=== PATIENT | male | born 1990 | race Caucasian/White ===

== ENCOUNTER 2020-04-14 12:28 | Emergency (ER) | payer OTHER ==
--- NOTE | 2020-04-14 12:45 | PDOC ---
Rapid Medical Evaluation Chief Complaint: Chest Pain Time Seen by Provider: 04/14/20 12:37 Medical Evaluation: 04/14/20 12:44 CC: chest pressure constant since last night, intermittent x 1 month, no other complaints Exam: no reproducible cp, vss Plan: labs, ekg, cxr Discharge Disposition - Diagnosis Chest pain - Referrals - Patient Instructions - Post Discharge Activity
[2020-04-14 12:46] VITALS: BP 119/71; PULSE 61; TEMP 97.8; BMI 31.8
--- OUTSIDE RECORDS SUMMARY | 2020-04-14 13:15 | XMS ---
:1990 Author Organization [facility] Support Name Relationship Address [place] [address] [address] [facility] [address] [place] [address] Re-disclosure Warning The records that you are about to access may contain information from federally- assisted alcohol or drug abuse programs. If such information is present, then the following federally mandated warning applies: This information has been disclosed to you from records protected by federal confidentiality rules (42 CFR part 2). The federal rules prohibit you from making any further disclosure of this information unless further disclosure is expressly permitted by the written consent of the person to whom it pertains or as otherwise permitted by 42 CFR part 2. A general authorization for the release of medical or other information is NOT sufficient for this purpose. The Federal rules restrict any use of the information to criminally investigate or prosecute any alcohol or drug abuse patient.The records that you are about to access may contain highly sensitive health information, the redisclosure of which is protected by Article 27-F of the [facility] Public Health law. If you continue you may haveaccess to information: Regarding HIV / AIDS; Provided by facilities licensed or operated by the [facility] Office of Mental Health; or Provided by the [facility] Office for People With Developmental Disabilities. If such information is present, then the following [facility] mandated warning applies: This information has been disclosed to you from confidential records which are protected by state law. State law prohibits you from making any further disclosure of this information without the specific written consent of the person to whom it pertains, or as otherwise permitted by law. Any unauthorized further disclosure in violation of state law may result in a fine or prison sentence or both. A general authorization for the release of medical or other information is NOT sufficient authorization for further disclosure. Insurance Providers Payer name Policy type Policy ID Covered Covered alliance party's Policy P marshall / Coverage alliance party ID relationship to [employer] ormation type mccord KEMAL [id number] [facility] NON CAP
[2020-04-14] MEDS ORDERED: ACETAMINOPHEN 500 MG TABLET (FP) PO ONE (13:50)
[2020-04-14 14:03] LABS: BASO % 0.3 % (0-2.0); EOS % 1.2 % (0-4.5); HEMATOCRIT 48.4 % (35.4-49); HEMOGLOBIN 16.2 GM/dL (11.7-16.9); LYMPH % 34.7 % (8-40); MCH 30.8 pg (25.7-33.7); MCHC 33.4 g/dl (32.0-35.9); MEAN PLT VOLUME 7.6 fl (7.5-11.1); MONO % 6.9 % (3.8-10.2); NEUT % 56.9 % (42.8-82.8); PLATELET COUNT 262 K/MM3 (134-434); RBC 5.26 M/mm3 (4.00-5.60); RDW 13.3 % (11.9-15.9); WHITE BLOOD COUNT 6.6 K/mm3 (4.0-10.0)
--- NOTE | 2020-04-14 14:09 | PDOC ---
*Physical Exam - Vital Signs Last Vital Signs Temp Pulse Resp BP Pulse Ox 97.8 F 61 17 119/71 100 04/14/20 12:44 04/14/20 12:44 04/14/20 12:44 04/14/20 12:44 04/14/20 12:44 - Physical Exam 04/14/20 14:09 The patient was examined by [SCOOBY Armendariz] under my direct supervision. I personally evaluated the patient. I concur with the above findings and the plan of care. ED Treatment Course - LABORATORY CBC & Chemistry Diagram: 04/14/20 13:00 04/14/20 13:00 Discharge - Discharge Information Problems reviewed: Yes Clinical Impression/Diagnosis: Chest pain Qualifiers: Chest pain type: unspecified Qualified Code(s): R07.9 - Chest pain, unspecified Condition: Stable Disposition: HOME - Follow up/Referral Referrals: Raymond Salgado MD [Staff Physician] - - Patient Discharge Instructions Patient Printed Discharge Instructions: DI for Atypical Chest Pain Additional Instructions: You were seen for your chest discomfort today. Your EKG, lab work and x-ray were normal. You may take Tylenol 650 mg every 6 hours as needed for pain. Please follow-up with cardiology as soon as possible. A referral has been given to you. Please follow-up with your primary care doctor tomorrow for further management of your symptoms. Return to the ER for persistent chest pain, shortness of breath, difficulty breathing or if you have any changes in your symptoms - Post Discharge Activity
[2020-04-14 14:20] LABS: CHLORIDE 105 mmol/L (98-107); POTASSIUM 3.9 mmol/L (3.5-5.1); SODIUM 138 mmol/L (136-145)
[2020-04-14 14:24] LABS: ANION GAP 5 MMOL/L (8-16); CALCIUM 9.7 mg/dL (8.5-10.1); CO2 28 mmol/L (21-32); GLUCOSE,RANDOM 90 mg/dL (74-106)
[2020-04-14 14:25] LABS: BLOOD UREA NITROGEN 11.9 mg/dL (7-18)
[2020-04-14 14:27] LABS: CREATININE 1.1 mg/dL (0.55-1.3)
[2020-04-14 14:28] LABS: SGOT/AST 16 U/L (15-37); SGPT/ALT 26 U/L (13-61)
[2020-04-14 14:29] LABS: BILIRUBIN,TOTAL 0.4 mg/dL (0.2-1); TOT PROT 7.5 g/dl (6.4-8.2)
[2020-04-14 14:30] LABS: ALK PHOS 58 U/L (45-117)
--- NOTE | 2020-04-14 15:12 | EKG ---
Test Reason : Blood Pressure : / mmHG Vent. Rate : 060 BPM Atrial Rate : 060 BPM P-R Int : 154 ms QRS Dur : 084 ms QT Int : 402 ms P-R-T Axes : 027 037 033 degrees QTc Int : 402 ms NORMAL SINUS RHYTHM NORMAL ECG NO PREVIOUS ECGS AVAILABLE Confirmed by MD JU, DAMON ([id number]) on 04/14/2020 3:12:26 PM Referred By: Confirmed By:DAMON DODD MD
--- NOTE | 2020-04-14 15:22 | PDOC ---
History of Present Illness - General Chief Complaint: Chest Pain Stated Complaint: CHEST PAIN Time Seen by Provider: 04/14/20 12:37 History Source: Patient Exam Limitations: No Limitations Past History - Travel History Traveled outside of the country in the last 30 days: No Close contact w/someone who was outside of country & ill: No - Medical History Allergies/Adverse Reactions: Allergies Allergy/AdvReac Type Severity Reaction Status Date / Time No Known Allergies Allergy Verified 04/14/20 14:15 Home Medications: Ambulatory Orders NK [No Known Home Medication] 04/14/20 COPD: No CHF: No DVT: No - Psycho-Social/Smoking History Smoking History: Never smoked Have you smoked in the past 12 months: No Information on smoking cessation initiated: No - Substance Abuse Hx (Audit-C & DAST Scrn) How often the patient has a drink containing alcohol: Never Score: In Men: 4 or > Positive; In Women: 3 or > Positive: 0 Screen Result (Pos requires Nsg. Audit-10AR): Negative In the last yr the pt used illegal drug/Rx for NonMed reason: No Score: Yes response is considered Positive: 0 Screen Result (Positive result requires Nsg. DAST-10): Negative Review of Systems - Review of Systems Able to Perform ROS?: Yes Comments:: 04/14/20 15:37 CONSTITUTIONAL: Absent: fever, chills, diaphoresis, generalized weakness, malaise, loss of appetite HEENT: Absent: rhinorrhea, nasal congestion, throat pain, throat swelling, difficulty swallowing, mouth swelling, ear pain, eye pain, visual Changes CARDIOVASCULAR: Present: Chest pain, pressure Absent: chest pain, loss of consciousness, palpitations, irregular heart rate, peripheral edema RESPIRATORY: Absent: cough, shortness of breath, dyspnea with exertion, orthopnea, wheezing, stridor, hemoptysis GASTROINTESTINAL: Absent: abdominal pain, abdominal distension, nausea, vomiting, diarrhea, constipation, melena, hematochezia GENITOURINARY: Absent: dysuria, frequency, urgency, hesitancy, hematuria, flank pain, genital pain MUSCULOSKELETAL: Absent: myalgia, arthralgia, joint swelling SKIN: Absent: rash, itching, pallor HEMATOLOGIC/IMMUNOLOGIC: Absent: easy bleeding, easy bruising, lymphadenopathy, frequent infections ENDOCRINE: Absent: unexplained weight gain, unexplained weight loss, heat intolerance, cold intolerance NEUROLOGIC: Absent: headache, focal weakness or paresthesias, dizziness, unsteady gait, seizure, mental status changes, bladder or bowel incontinence PSYCHIATRIC: Absent: anxiety, depression, suicidal or homicidal ideation, hallucinations. Is the patient limited [place] proficient: No *Physical Exam - Vital Signs Last Vital Signs Temp Pulse Resp BP Pulse Ox 97.8 F 61 17 119/71 100 04/14/20 12:44 04/14/20 12:44 04/14/20 12:44 04/14/20 12:44 04/14/20 12:44 - Physical Exam 04/14/20 15:38 GENERAL: Well developed, well nourished. Awake and alert. No acute distress. HEENT: Normocephalic, atraumatic. PERRLA, EOMI. No conjunctival pallor. Sclera are non- icteric. Moist mucous membranes. Oropharynx is clear. NECK: Supple. Full ROM. No lymphadenopathy. CARDIOVASCULAR: Regular rate and rhythm. No murmurs, rubs, or gallops. Distal pulses are 2+ and symmetric. PULMONARY: No evidence of respiratory distress. Lungs clear to auscultation bilaterally. No wheezing, rales or rhonchi. ABDOMINAL: Soft. Non-tender. Non-distended. No rebound or guarding. No organomegaly. Normoactive bowel sounds. MUSCULOSKELETAL Normal range of motion at all joints. No bony deformities or tenderness. No CVA tenderness. EXTREMITIES: No cyanosis. No clubbing. No edema. No calf tenderness. SKIN: Warm and dry. Normal capillary refill. No rashes. No jaundice. NEUROLOGICAL: Alert, awake, appropriate. Cranial nerves 2-12 intact. No deficits to light touch and temperature in face, upper extremities and lower extremities. No motor deficits in the in face, upper extremities and lower extremities. Normoreflexic in the upper and lower extremities. Normal speech. Toes are down-going bilateral ly. Gait is normal without ataxia. PSYCHIATRIC: Cooperative. Good eye contact. Appropriate mood and affect. ED Treatment Course - LABORATORY CBC & Chemistry Diagram: 04/14/20 13:00 04/14/20 13:00 - ADDITIONAL ORDERS Additional order review: Laboratory Results 04/14/20 13:00 Sodium 138 Potassium 3.9 Chloride 105 Carbon Dioxide 28 Anion Gap 5 L BUN 11.9 Creatinine 1.1 Est GFR (CKD-EPI)AfAm 103.13 Est GFR (CKD-EPI)NonAf 88.98 Random Glucose 90 Calcium 9.7 Total Bilirubin 0.4 AST 16 ALT 26 Alkaline Phosphatase 58 Creatine Kinase 251 Creatine Kinase Index No Result Required. CK-MB (CK-2) < 1.0 Troponin I < 0.02 Total Protein 7.5 Albumin 4.0 04/14/20 13:00 RBC 5.26 MCV 92.0 MCHC 33.4 RDW 13.3 MPV 7.6 Neutrophils % 56.9 Lymphocytes % 34.7 Monocytes % 6.9 Eosinophils % 1.2 Basophils % 0.3 - Medications Given in the ED: ED Medications Discontinued Medications Generic Name Dose Route Start Last Admin Trade Name Freq PRN Reason Stop Dose Admin Acetaminophen 1,000 mg 04/14/20 13:50 04/14/20 14:25 Tylenol - PO 04/14/20 13:51 1,000 mg ONCE ONE Administration Medical Decision Making - Medical Decision Making 04/14/20 15:38 Patient is 29-year-old male no past medical history, presents to the ER today for intermittent chest pain. He states he has had chest pain approximately 5 weeks ago which resolved after 2 days. He states that he went to bed last night with some chest pressure. He states that it did not go away so he came to the ER this morning for evaluation. He states he was positive for Covid back in [facility] however he did not receive a test at that time. Denies fevers, chills, difficulty breathing, shortness of breath, nausea, vomiting diarrhea. He states his chest pain/pressure gets better when he stretches his chest wall muscles. A/P: Atypical chest pain On exam regular rate and rhythm, S1-S2 present no murmurs rubs or gallops Lungs clear to auscultation bilateral no wheezes rales or rhonchi., No history of asthma. Low risk chest pain pathway initiated. Symptoms started yesterday. Remote history for Covid, antibody test added on, is currently positive at this time for antibodies White count within normal limits, no troponin. EKG shows rate 60 bpm normal sinus rhythm, normal intervals and axis. No acute ST-T wave changes. Normal EKG. Patient still with chest discomfort after Tylenol. However given normal lab work, EKG and chest x-ray will discharge home with cardiology follow-up. Potential Covid side effects? Strict return precautions given. Cardiology referral given. I discussed the physical exam findings, ancillary test results and final diagnoses with the patient. I answered all of the patient's questions. The patient was satisfied with the care received and felt comfortable with the discharge plan and treatment plan. The Patient agrees to follow up with the primary care physician/specialist within 24-72 hours. Return precautions were given. Discharge - Discharge Information Problems reviewed: Yes Clinical Impression/Diagnosis: Chest pain Qualifiers: Chest pain type: unspecified Qualified Code(s): R07.9 - Chest pain, unspecified Condition: Stable Disposition: HOME - Admission No - Follow up/Referral Referrals: Raymond Salgado MD [Staff Physician] - - Patient Discharge Instructions Patient Printed Discharge Instructions: DI for Atypical Chest Pain Additional Instructions: You were seen for your chest discomfort today. Your EKG, lab work and x-ray were normal. You may take Tylenol 650 mg every 6 hours as needed for pain. Please follow-up with cardiology as soon as possible. A referral has been given to you. Please follow-up with your primary care doctor tomorrow for further management of your symptoms. Return to the ER for persistent chest pain, shortness of breath, difficulty breathing or if you have any changes in your symptoms - Post Discharge Activity
== END 2020-04-14 15:55 | disposition home or self-care (01) ==
LOC: JER 12:28
DX: R07.9 Chest pain, unspecified (principal)
CPT/HCPCS: 36415; 71045-TC-FY; 80053; 82550; 82553; 84484; 85025; 86769; 93005; 93010; 99285-25; C9803; U0003